=== PATIENT | female | born 1995 | race Caucasian/White ===

== ENCOUNTER 2017-07-07 13:49 | Emergency (ER) | payer OTHER ==
[~2017-07-07] VITALS: Ht 175.3 cm; Wt 75.0 kg
[2017-07-07 13:51] VITALS: BP 133/76; PULSE 82; RESP 14; TEMP 98.9; O2SAT 100
[2017-07-07] MEDS ORDERED: SODIUM CHLORIDE 0.9% FLUSH 10 ML FLUSH IVF PRN (15:00)
[2017-07-07 15:30] LABS: AUTOMATED NEUTROPHIL # 5.5 TH/MM3 (1.8-7.7); BASOPHIL % 0.6 % (0.0-2.0); EOSINOPHIL % 0.6 % (0.0-4.0); HEMATOCRIT 39.2 % (35.0-46.0); HEMO FLAGS DIFF FINAL; LYMPH % 27.3 % (9.0-44.0); LYMPHOCYTE # 2.2 TH/MM3 (1.0-4.8); MEAN CELL VOLUME 90.8 FL (80.0-100.0); MEAN CORPUSCULAR HEMOGLOBIN 31.7 PG (27.0-34.0); MEAN CORPUSCULAR HGB CONC 34.9 % (32.0-36.0); MONO % 5.4 % (0.0-8.0); NEUT % 66.1 % (16.0-70.0); PLATELET COUNT 274 TH/MM3 (150-450); RED BLOOD COUNT 4.32 MIL/MM3 (4.00-5.30); RED CELL DISTRIBUTION WIDTH 13.1 % (11.6-17.2); WHITE BLOOD COUNT 8.3 TH/MM3 (4.0-11.0)
[2017-07-07 15:38] LABS: BACTERIA, URINE RARE /hpf; BLOOD, URINE NEG (NEG); COMMENT (UR) CULT NOT INDICATED; CULTURE IF INDICATED CULT NOT INDICATED; GLUCOSE,URINE NEG (NEG); KETONE, URINE NEG (NEG); NITRITE,URINE NEG (NEG); PH, URINE 6.5 (5.0-8.5); SQUAMOUS EPITHELIAL CELL URINE <1 /hpf (0-5); URINE COLOR LIGHT-YELLOW (YELLW/STRAW)
[2017-07-07 15:40] LABS: APTT (PATIENT) 26.8 SEC (24.3-30.1); PROTHROMBIN TIME - PATIENT 10.4 SEC (9.8-11.6)
[2017-07-07 15:46] LABS: BICARBONATE 26.8 MEQ/L (21.0-32.0); POTASSIUM 3.8 MEQ/L (3.5-5.1)
--- NOTE | 2017-07-07 16:07 | RADRPT ---
EXAM DATE/TIME: 07/07/2017 15:51 [place] COMPARISON: No previous studies available for comparison. INDICATIONS : Syncopal episode with fall from seated position. RADIATION DOSE: 34.08 CTDIvol (mGy) MEDICAL HISTORY : None SURGICAL HISTORY : section. ENCOUNTER: Initial ACUITY: 1 day PAIN SCALE: 0/10 LOCATION: cranial TECHNIQUE: Multiple contiguous axial images were obtained of the head. Using automated exposure control and adj ustment of the mA and/or kV according to patient size, radiation dose was kept as low as reasonably a chievable to obtain optimal diagnostic quality images. DICOM format image data is available electro nically for review and comparison. FINDINGS: CEREBRUM: The ventricles are normal for age. No evidence of midline shift, mass lesion, hemorrhage or acute in farction. No extra-axial fluid collections are seen. POSTERIOR FOSSA: The cerebellum and brainstem are intact. The 4th ventricle is midline. The cerebellopontine angle i s unremarkable. EXTRACRANIAL: The visualized portion of the orbits is intact. SKULL: The calvaria is intact. No evidence of skull fracture. CONCLUSION: Normal examination. Jimmie Trevizo MD on July 07, 2017 at 16:04 Board Certified Radiologist. This report was verified electronically.
--- NOTE | 2017-07-07 16:13 | PD ---
HPI Chief Complaint: Syncope/Near-Syncope Time Seen by Provider: 14:29 Travel History International Travel<30 days: No Contact w/Intl Traveler<30days: No Traveled to known affect area: No History of Present Illness HPI 22-year-old female presents to the emergency department after having a syncopal episode today while at work. Said she was feeling dizzy and sat down and when she woke up she was on the floor. She doesn't know if she hit her head. The event was unwitnessed. She denies headache or head pain. Reports vomiting about 7 times. Reports continued nausea. Reports dizziness. Denies recent illness to and include cough, nasal congestion, ear pain, sore throat. Denies fevers. Denies abdominal pain, chest pain, shortness of breath. Denies neck pain or back pain. Denies confusion, disorientation, change in mentation, slurred speech, focal deficits or weakness. Denies difficulty ambulating. Is concerned of . Her last menstrual period was June 04 and reports irregular menses. Has taken home tests which were negative. Also is complaining of burning of urination after sexual intercourse only; and also after urinating she feels like she still has to urinate. Has history of an abnormal heartbeat secondary to anxiety, per the patient. Takes Prozac. Does not, massage primary care provider. Allergies to antibiotics except for Keflex , shellfish and nuts. Has no other medical complaints. No other modifying factors or associated signs and symptoms. PFSH Past Medical History Anxiety: Yes Tetanus Vaccination: Unknown Influenza Vaccination: No ?: Unknown LMP: 06/04/17 Past Surgical History Abdominal Surgery: Yes (HERNIA) Section: Yes Social History Alcohol Use: Yes (OCC) Tobacco Use: Yes Substance Use: No Allergies-Medications (Allergen,Severity, Reaction): Coded Allergies: nut - unspecified (Verified Allergy, Unknown, 07/07/17) shellfish derived (Verified Allergy, Unknown, 07/07/17) Uncoded Allergies: ALL ANTIBIOTICS EXCEPT KELFEX (Allergy, Unknown, 07/07/17) Reported Meds & Prescriptions Reported Meds & Active Scripts Active No Active Prescriptions or Reported Medications Review of Systems Except as stated in HPI: all other systems reviewed are Neg Physical Exam Narrative GENERAL: Well-nourished, well-developed patient, in no acute distress SKIN: Warm and dry. HEAD: Atraumatic. Normocephalic. No facial droop noted. Tongue midline. Finger to nose test normal. EYES: Pupils equal and round at 3 mm with brisk reaction. No scleral icterus. No injection or drainage. PERRLA. EOMI. ENT: Mucosa pink and moist. No erythema or exudates. No uvular edema. No uvular , palatal, or tonsillar deviation. Airway patent. Nasal turbinates appear normal without nasal blood, purulent drainage or septal hematoma. EARS: Bilateral pinnae and external canals appear within normal limits. Bilateral tympanic membranes without erythema, dullness or perforation. NECK: Moving freely. Trachea midline. No lymphadenopathy. CARDIOVASCULAR: Regular rate and rhythm. No murmur appreciated. RESPIRATORY: No accessory muscle use. Clear to auscultation. Breath sounds equal bilaterally. GASTROINTESTINAL: Abdomen soft, non-tender, nondistended. Hepatic and splenic margins not palpable. Bowel sounds are active 4 quadrants. MUSCULOSKELETAL: No obvious deformities. No clubbing. No cyanosis. No edema. NEUROLOGICAL: Awake and alert. Oriented 4. No obvious cranial nerve deficits. Motor grossly within normal limits. Normal speech. No ataxia. No mid -line drift. No upper or lower extremity drift. Moves all extremities. 5/5 strength to all extremities. PSYCHIATRIC: Appropriate mood and affect; insight and judgment normal. Data Data Last Documented VS Vital Signs Date Time Temp Pulse Resp B/P (MAP) Pulse Ox O2 Delivery O2 Flow Rate FiO2 07/07/17 14:09 18 07/07/17 13:51 98.9 82 133/76 (95) 100 Orders Orders Electrocardiogram (07/07/17 14:46) Basic Metabolic Panel (Bmp) (07/07/17 14:46) Ed Urine Pregnancytest Poc (07/07/17 14:46) Complete Blood Count With Diff (07/07/17 14:46) Act Partial Throm Time (Ptt) (07/07/17 14:46) Prothrombin Time / Inr (Pt) (07/07/17 14:46) Urinalysis - C+S If Indicated (07/07/17 14:46) Ct Brain W/O Iv Contrast(Rout) (07/07/17 14:46) Ecg Monitoring (07/07/17 14:46) Iv Access Insert/Monitor (07/07/17 14:46) Oximetry (07/07/17 14:46) Sodium Chloride 0.9% Flush (Ns Flush) (07/07/17 15:00) Labs Laboratory Tests Test 07/07/17 15:05 White Blood Count 8.3 TH/MM3 Red Blood Count 4.32 MIL/MM3 Hemoglobin 13.7 GM/DL Hematocrit 39.2 % Mean Corpuscular Volume 90.8 FL Mean Corpuscular Hemoglobin 31.7 PG Mean Corpuscular Hemoglobin Concent 34.9 % Red Cell Distribution Width 13.1 % Platelet Count 274 TH/MM3 Mean Platelet Volume 8.4 FL Neutrophils (%) (Auto) 66.1 % Lymphocytes (%) (Auto) 27.3 % Monocytes (%) (Auto) 5.4 % Eosinophils (%) (Auto) 0.6 % Basophils (%) (Auto) 0.6 % Neutrophils # (Auto) 5.5 TH/MM3 Lymphocytes # (Auto) 2.2 TH/MM3 Monocytes # (Auto) 0.4 TH/MM3 Eosinophils # (Auto) 0.0 TH/MM3 Basophils # (Auto) 0.0 TH/MM3 CBC Comment DIFF FINAL Differential Comment Prothrombin Time 10.4 SEC Prothromb Time International Ratio 1.0 RATIO Activated Partial Thromboplast Time 26.8 SEC Urine Color LIGHT-YELLOW Urine Turbidity CLEAR Urine pH 6.5 Urine Specific [place] 1.007 Urine Protein NEG mg/dL Urine Glucose (UA) NEG mg/dL Urine Ketones NEG mg/dL Urine Occult Blood NEG Urine Nitrite NEG Urine Bilirubin NEG Urine Urobilinogen LESS THAN 2.0 MG/DL Urine Leukocyte Esterase SMALL Urine RBC LESS THAN 1 /hpf Urine WBC 7 /hpf Urine Squamous Epithelial Cells <1 /hpf Urine Bacteria RARE /hpf Microscopic Urinalysis Comment CULT NOT INDICATED Blood Urea Nitrogen 7 MG/DL Creatinine 0.65 MG/DL Random Glucose 82 MG/DL Calcium Level 8.9 MG/DL Sodium Level 140 MEQ/L Potassium Level 3.8 MEQ/L Chloride Level 107 MEQ/L Carbon Dioxide Level 26.8 MEQ/L Anion Gap 6 MEQ/L Estimat Glomerular Filtration Rate 114 ML/MIN [facility] Medical Decision Making Medical Screen Exam Complete: Yes Emergency Medical Condition: Yes Medical Record Reviewed: Yes Differential Diagnosis Syncope, electrolyte imbalance, arrhythmia, anemia Narrative Course 22-year-old female with syncopal episode today. Neuro exam is unremarkable. CBC, BMP, coags, EKG, CT head, urinalysis, UPT ordered. 1613: CBC, BMP, coags, urinalysis unremarkable. EKG with normal sinus rhythm; without ST elevation or depression; reviewed by Dr. Mckeon. 1614: CT head concludes: Head CT 07/07/17 1446 Signed Impressions: Service Date/Time: , July 07, 2017 15:51 - CONCLUSION: Normal examination. Jimmie Trevizo MD Findings discussed with the patient. Instructed patient to follow up with primary care provider. Patient verbalizes understanding and agreement with treatment plan. Patient is medically cleared and stable for discharge. Discussed reasons to return to the emergency department. Patient agrees with treatment plan. The patients vital signs are stable and the patient is stable for outpatient follow-up and treatment. Patient discharged home, stable and in no acute distress. Diagnosis Primary Impression: Syncope Qualified Codes: R55 - Syncope and collapse Referrals: [facility] Primary Care Physician Patient Instructions: Dizziness (ED), General Instructions, Syncope (ED) Departure Forms: Tests/Procedures, Work Release Enter return to work date: Jul 08, 2017 Additional Instructions: [id number] meclizine as directed and as needed for continued dizziness Follow-up with primary care provider Follow-up with neurology as needed Return to the emergency department immediately if worsening of symptoms Med/Other Pt SpecificInfo: No Change to Meds, No Meds Exist/No RX given Scripts No Active Prescriptions or Reported Meds Disposition: 01 DISCHARGE HOME Condition: Stable Yoon Lechuga Jul 07, 2017 16:13
[2017-07-07 16:44] VITALS: BP 125/62
--- NOTE | 2017-07-08 16:09 | EKG ---
Date Performed: 07/07/2017 Time Performed: 15:06:39 PTAGE: 22 years EKG: Sinus rhythm POSSIBLE RIGHT VENTRICULAR CONDUCTION DELAY BORDERLINE ECG NO PREVIOUS TRACING DOCTOR: Kim Reese Interpretating Date/Time 07/08/2017 16:08:41
== END 2017-07-07 16:50 | disposition home or self-care (01) ==
LOC: NEPD 13:49
DX: R55 Syncope and collapse (principal); F41.9 Anxiety disorder, unspecified; R94.31 Abnormal electrocardiogram [ECG] [EKG]; Z72.0 Tobacco use
CPT/HCPCS: 70450; 80048; 81001; 84703; 85025; 85610; 85730; 93005; 99285